=== PATIENT | male | born 1990 | race Caucasian/White ===

== ENCOUNTER 2019-02-16 07:38 | Emergency (ER) | payer MEDICAID, OTHER ==
[~2019-02-16] VITALS: Ht 188 cm; Wt 90.7 kg
[2019-02-16 07:38] VITALS: BP_SYST 141
--- NOTE | 2019-02-16 07:38 | NUR ---
BROUGHT BACK TO BED #8 AND TRIAGED. REPORT GIVEN TO ROSLYN
--- NOTE | 2019-02-16 07:39 | NUR ---
Patient is awake, alert, and oriented x4. Patient reports he was using a dolley at work and it sliced his foot, went through his shoe. Patient presents with small laceration to left foot, small amount of sanguinous drainage, no foul odor.
--- NOTE | 2019-02-16 07:40 | NUR ---
MALI Cade at bedside examining patient.
--- NOTE | 2019-02-16 08:05 | NUR ---
Dr. Cade at bedside to apply dermabound.
[2019-02-16 08:20] VITALS: BP_SYST 141
--- NOTE | 2019-02-16 08:20 | NUR ---
Patient given written and verbal discharge instructions and verbalizes understanding. ER MD discussed with patient the results and treatment provided. Patient in stable condition. ID arm band removed. Rx of ibuprofen, bactrim DS given. Patient educated on pain management and to follow up with PMD. Pain Scale 0/10. Opportunity for questions provided and answered. Medication side effect fact sheet provided.
== END 2019-02-16 08:20 | disposition home or self-care (01) ==
LOC: SED 07:38
DX: S91.111A Laceration without foreign body of right great toe without damage to nail, initial encounter (principal); W45.8XXA Other foreign body or object entering through skin, initial encounter; Y93.89 Activity, other specified; Y92.512 Supermarket, store or market as the place of occurrence of the external cause; Y99.8 Other external cause status
CPT/HCPCS: 99283